=== PATIENT | female | born 2000 | race Two or more races ===

== ENCOUNTER 2020-07-09 15:09 | Inpatient (IN) ==
[2020-07-09 15:37] LABS: Appearance Urine Clear (Clear); Bilirubin Urine Negative (Negative); Blood Urine Negative (Negative); Color Urine Dark Yellow; Glucose Urine UA Negative (Negative); Ketones Urine Trace (Negative); Leukocyte Esterase Urine Negative (Negative); Nitrite Urine Negative (Negative); Protein Urine Negative (Negative); Specific Gravity Urine 1.024 (1.000-1.030); Urobilinogen Urine Negative (Negative); pH Urine 6.5 (4.5-7.5)
[2020-07-09 15:40] LABS: Pregnancy Test, Urine Negative (Negative)
[2020-07-09 16:01] LABS: Amphetamines+Metham, Urine Neg (Neg); Barbiturates, Urine Neg (Neg); Benzodiazepine, Urine Neg (Neg); Cocaine, Urine Neg (Neg); MDMA (Ecstacy), Urine Neg (Neg); Methadone, Urine Neg (Neg); Opiate, Urine Neg (Neg); Phencyclidine, Urine Neg (Neg)
[2020-07-09 16:12] LABS: Basophils # (auto) 0.04 K/uL (0-0.2); Basophils % (auto) 0.7 %; Eosinophils # (auto) 0.18 K/uL (0-0.5); Hematocrit (blood only) 41.4 % (37-47); Hemoglobin 14.1 g/dL (12.0-16.0); Immature Granulocytes # (auto) 0.01 K/uL (0.00-0.02); Immature Granulocytes % (auto) 0.2 %; Lymphocytes % (auto) 35.3 %; Mean Corpuscular Hemoglobin 28.9 pg (25-34); Mean Corpuscular Hgb Conc 34.1 g/dL (32-36); Mean Corpuscular Volume 84.8 fL (80-100); Mean Platelet Volume 9.3 fL (7.4-10.4); Monocytes # (auto) 0.23 K/uL (0.11-0.59); Monocytes % (auto) 3.9 %; Neutrophils # (auto) 3.39 K/uL (1.4-6.5); Neutrophils % (auto) 56.9 %; Platelet Count 386 K/uL (130-400); RDW Coefficient of Variation 13.8 % (11.5-14.5); RDW Standard Deviation 42.8 fL (36.4-46.3); Red Blood Count 4.88 M/uL (4.2-5.4); White Blood Count 5.95 K/uL (4.8-10.8)
[2020-07-09 16:29] LABS: Albumin Level 4.2 gm/dl (3.4-5.0); BUN Creatinine Ratio 8.5 (10-20); Calcium 9.4 mg/dl (8.5-10.1); Creatinine Clr Calc Pharmacy 77.7 ml/min; Est GFR (African American) 121.2; Est GFR (Non-African American) 104.6; Potassium 3.7 mmol/L (3.5-5.1)
[2020-07-09 16:39] LABS: Bilirubin,Total 0.4 mg/dl (0.2-1); Globulin 4.2 gm/dl (2.5-4.0); Thyroid Stimulating Hormone 0.331 uIu/ml (0.300-4.500); Total Protein 8.4 gm/dl (6.4-8.2)
[2020-07-09 16:49] LABS: Acetaminophen < 2 ug/ml (10-30); Salicylate < 1.7 mg/dl (2.8-20)
--- NOTE | 2020-07-09 17:29 | Emergency Department Note ---
Impression & Plan Mood disorder ED Provider Note INFORMANT: Patient ED PROVIDER(S): Serafin Rondon MD CHIEF COMPLAINT: SI PLAN: Disposition: Admitted to 3 . MEDICAL DECISION MAKING: Patient presented with SI. Labs negative. Physical without significant findind s otherwise. [address] [place] [address] consulted for admission. Patient was evaluated by mental health in emergency department. They felt admission was warranted. The patient was voluntarily admitted for further management. Triage Nursing notes reviewed and agree them. Vital Signs: reviewed and remarkable for no significant abnormalities Differential diagnosis: Mood disorder, infection, hypoglycemia, electrolyte abnormalities, cardiac sources, intracerebral event, toxicologic, trauma, neurologic, as well as other pathologies. Diagnostics interpreted by me: Imaging studies: Deferred Consultation(s): [address] [place] [address] Psychiatry. HPI: The patient is a 19 year old female who presents to the Emergency Room with complaints of suicidal ideation. This started over the last week and is worsening. The patient also notes the following associated symptoms, feeling anxiety and depression. She also notes increased sleep and low energy. The patient has been started on an SSRI 2 weeks ago. Since that time she has noted more anxiety and mood swings. She has found no relieving factors. Current pain is rated as 0/10. No Covid exposures or recent illnesses. The patient had thoughts of hurting herself with plan. She is followed by counseling services at the [facility]. She was referred to the ER for further treatment due to the suicidal ideation. Pt denies LOC, headache, fevers, chills, diaphoresis, visual changes, neck pain, chest pain, breathing difficulties, nausea, vomiting, abdominal pain, back pain, melena, hematochezia, urinary symptoms, numbness, weakness, lymphadenopathy, rash, or other complaints. ROS: See above HPI for pertinent positives & negatives. A total of 10 systems reviewed and were otherwise negative. PAST MEDICAL HISTORY:See Below, anxiety, suicide attempt PAST SURGICAL HISTORY:See Below, FAMILY HISTORY:See Below SOCIAL HISTORY:See Below, [facility] student HOME MEDICATIONS:See Below ALLERGIES:See Below VITALS:See Below PHYSICAL EXAMINATION: GENERAL: Awake, alert, well-appearing, in no distress HENT: Normocephalic, atraumatic. Oropharynx unremarkable. EYES: Normal conjunctiva. Sclera non-icteric. EOMI. PER. NECK: Inspection normal. Non-tender. Supple. No nuchal rigidity. FROM. No masses. RESPIRATORY: Clear to auscultation. No wheezes. No rales. Normal respiratory effort. CARDIAC: Normal rate. Normal rhythm. No murmurs. No rubs. Extremities warm and well perfused. Pulses equal. No JVD. GI: Soft, non-distended. No tenderness to palpation. No rebound or guarding. No masses. RECTAL: Deferred. MUSCULOSKELETAL: Atraumatic. Chest examination reveals no tenderness. The back is symmetrical on inspection without obvious abnormality. There is no CVA tenderness to palpation. No joint edema. LOWER EXTREMITIES: Calves are equal size bilaterally and non-tender. No edema. No discoloration. NEURO: Normal sensorium. No sensory or motor deficits noted. Cranial nerves II through XII intact. No drift. Normal rapid alternating movements. Normal [id number]. SKIN: No rash or jaundice noted. PSYCH: Positive suicidal ideation. No homicidal ideation. Mildly anxious mood. No hallucinations. Serafin Rondon MD Past Med/Surg History Social History Smoking Status: Never smoker Preferred Language: [facility] Communication Ability: Effective Neonatal Doctor Required: No Beliefs That Will Affect Care: Faith Faith Beliefs: Scientology Feels Safe at Home: Yes Assistive Devices: Glasses Allergies Allergies Allergy/AdvReac Type Severity Reaction Status Date / Time No Known Allergies Allergy Unverified 07/09/20 21:19 Home Meds Home Medications Medication Instructions Recorded Confirmed escitalopram oxalate [Lexapro] 10 mg PO DAILY 07/09/20 07/09/20 Results & Data (ED) Vital Signs Vital Signs - 24 hr 07/09/20 15:11 07/09/20 18:14 Temperature 36.5 C Temperature Source Oral Pulse Rate 105 H Pulse Rate [Left Finger] 110 H Pulse Rhythm [Left Finger] Regular Pulse Strength [Left Finger] Normal Respiratory Rate 18 16 Respiratory Effort / Characteristics Non-Labored Non-Labored Spontaneous Respiratory Depth Normal Normal Respiratory Pattern Regular Blood Pressure 128/95 Blood Pressure [Left Arm] 110/79 Blood Pressure Mean 106 Blood Pressure Mean [Left Arm] 89 Pulse Oximetry 98 100 Oxygen Delivery Method Room Air Room Air Sepsis Recent Fever Within 48 Hours No Sepsis New/Unexplained Change in Mental Status No Sepsis Action Taken by Nursing No Action Required Laboratory Data Result diagrams: 07/09/20 15:51 07/09/20 15:51 Lab Results 07/09/20 07/09/20 07/09/20 Range/Units 15:25 15:25 15:25 WBC (4.8-10.8) K/uL RBC (4.2-5.4) M/uL Hgb (12.0-16.0) g/dL Hct (37-47) % MCV (80-100) fL MCH (25-34) pg MCHC (32-36) g/dL RDW Std Deviation (36.4-46.3) fL RDW Coeff of Niall (11.5-14.5) % Plt Count (130-400) K/uL MPV (7.4-10.4) fL Immature Gran % (Auto) % Neut % (Auto) % Lymph % (Auto) % [place] % (Auto) % Eos % (Auto) % Baso % (Auto) % Neut # (Auto) (1.4-6.5) K/uL Lymph # (Auto) (1.2-3.4) K/uL [place] # (Auto) (0.11-0.59) K/uL Eos # (Auto) (0-0.5) K/uL Baso # (Auto) (0-0.2) K/uL Immature Gran # (Auto) (0.00-0.02) K/uL Sodium (136-145) mmol/L Potassium (3.5-5.1) mmol/L Chloride (98-107) mmol/L Carbon Dioxide (21-32) mmol/L Anion Gap (3-11) BUN (7-18) mg/dl Creatinine (0.6-1.2) mg/dl Est Cr Clr Drug Dosing ml/min Est GFR ( Amer) Est GFR (Non-Af Amer) BUN/Creatinine Ratio (10-20) Glucose (70-99) mg/dl Calcium (8.5-10.1) mg/dl Total Bilirubin (0.2-1) mg/dl AST (15-37) U/L ALT (12-78) U/L Alkaline Phosphatase (45-117) U/L Total Protein (6.4-8.2) gm/dl Albumin (3.4-5.0) gm/dl Globulin (2.5-4.0) gm/dl Albumin/Globulin Ratio (0.9-2) TSH (0.300-4.500) uIu/ml Urine Color Dark Yellow Urine Appearance Clear (Clear) Urine pH 6.5 (4.5-7.5) Ur Specific [place] 1.024 (1.000-1.030) Urine Protein Negative (Negative) Urine Glucose (UA) Negative (Negative) Urine Ketones Trace H (Negative) Urine Blood Negative (Negative) Urine Nitrite Negative (Negative) Urine Bilirubin Negative (Negative) Urine Urobilinogen Negative (Negative) Ur Leukocyte Esterase Negative (Negative) Urine Test Negative (Negative) Salicylates (2.8-20) mg/dl Urine Opiates Screen Neg (Neg) Ur Methadone, Qual Neg (Neg) Acetaminophen (10-30) ug/ml Urine Barbiturates Neg (Neg) Ur Phencyclidine (PCP) Neg (Neg) U Amphetamin/Meth Scrn Neg (Neg) MDMA (Ecstasy) Screen Neg (Neg) U Benzodiazepines Scrn Neg (Neg) Ur Cocaine Metabolite Neg (Neg) U Marijuana (THC) Screen Neg (Neg) Ethyl Alcohol mg/dL (0-3) mg/dl SARS-CoV-2 Ag (Rapid) (Negative) 07/09/20 07/09/20 07/09/20 Range/Units 15:51 15:51 15:51 WBC 5.95 (4.8-10.8) K/uL RBC 4.88 (4.2-5.4) M/uL Hgb 14.1 (12.0-16.0) g/dL Hct 41.4 (37-47) % MCV 84.8 (80-100) fL MCH 28.9 (25-34) pg MCHC 34.1 (32-36) g/dL RDW Std Deviation 42.8 (36.4-46.3) fL RDW Coeff of Niall 13.8 (11.5-14.5) % Plt Count 386 (130-400) K/uL MPV 9.3 (7.4-10.4) fL Immature Gran % (Auto) 0.2 % Neut % (Auto) 56.9 % Lymph % (Auto) 35.3 % [place] % (Auto) 3.9 % Eos % (Auto) 3.0 % Baso % (Auto) 0.7 % Neut # (Auto) 3.39 (1.4-6.5) K/uL Lymph # (Auto) 2.10 (1.2-3.4) K/uL [place] # (Auto) 0.23 (0.11-0.59) K/uL Eos # (Auto) 0.18 (0-0.5) K/uL Baso # (Auto) 0.04 (0-0.2) K/uL Immature Gran # (Auto) 0.01 (0.00-0.02) K/uL Sodium 139 (136-145) mmol/L Potassium 3.7 (3.5-5.1) mmol/L Chloride 107 (98-107) mmol/L Carbon Dioxide 24 (21-32) mmol/L Anion Gap 7.0 (3-11) BUN 7 (7-18) mg/dl Creatinine 0.81 (0.6-1.2) mg/dl Est Cr Clr Drug Dosing 77.7 ml/min Est GFR ( Amer) 121.2 Est GFR (Non-Af Amer) 104.6 BUN/Creatinine Ratio 8.5 L (10-20) Glucose 86 (70-99) mg/dl Calcium 9.4 (8.5-10.1) mg/dl Total Bilirubin 0.4 (0.2-1) mg/dl AST 19 (15-37) U/L ALT 19 (12-78) U/L Alkaline Phosphatase 78 (45-117) U/L Total Protein 8.4 H (6.4-8.2) gm/dl Albumin 4.2 (3.4-5.0) gm/dl Globulin 4.2 H (2.5-4.0) gm/dl Albumin/Globulin Ratio 1.0 (0.9-2) TSH 0.331 (0.300-4.500) uIu/ml Urine Color Urine Appearance (Clear) Urine pH (4.5-7.5) Ur Specific [place] (1.000-1.030) Urine Protein (Negative) Urine Glucose (UA) (Negative) Urine Ketones (Negative) Urine Blood (Negative) Urine Nitrite (Negative) Urine Bilirubin (Negative) Urine Urobilinogen (Negative) Ur Leukocyte Esterase (Negative) Urine Test (Negative) Salicylates < 1.7 L (2.8-20) mg/dl Urine Opiates Screen (Neg) Ur Methadone, Qual (Neg) Acetaminophen < 2 L (10-30) ug/ml Urine Barbiturates (Neg) Ur Phencyclidine (PCP) (Neg) U Amphetamin/Meth Scrn (Neg) MDMA (Ecstasy) Screen (Neg) U Benzodiazepines Scrn (Neg) Ur Cocaine Metabolite (Neg) U Marijuana (THC) Screen (Neg) Ethyl Alcohol mg/dL (0-3) mg/dl SARS-CoV-2 Ag (Rapid) (Negative) 07/09/20 07/09/20 Range/Units 15:51 17:00 WBC (4.8-10.8) K/uL RBC (4.2-5.4) M/uL Hgb (12.0-16.0) g/dL Hct (37-47) % MCV (80-100) fL MCH (25-34) pg MCHC (32-36) g/dL RDW Std Deviation (36.4-46.3) fL RDW Coeff of Niall (11.5-14.5) % Plt Count (130-400) K/uL MPV (7.4-10.4) fL Immature Gran % (Auto) % Neut % (Auto) % Lymph % (Auto) % [place] % (Auto) % Eos % (Auto) % Baso % (Auto) % Neut # (Auto) (1.4-6.5) K/uL Lymph # (Auto) (1.2-3.4) K/uL [place] # (Auto) (0.11-0.59) K/uL Eos # (Auto) (0-0.5) K/uL Baso # (Auto) (0-0.2) K/uL Immature Gran # (Auto) (0.00-0.02) K/uL Sodium (136-145) mmol/L Potassium (3.5-5.1) mmol/L Chloride (98-107) mmol/L Carbon Dioxide (21-32) mmol/L Anion Gap (3-11) BUN (7-18) mg/dl Creatinine (0.6-1.2) mg/dl Est Cr Clr Drug Dosing ml/min Est GFR ( Amer) Est GFR (Non-Af Amer) BUN/Creatinine Ratio (10-20) Glucose (70-99) mg/dl Calcium (8.5-10.1) mg/dl Total Bilirubin (0.2-1) mg/dl AST (15-37) U/L ALT (12-78) U/L Alkaline Phosphatase (45-117) U/L Total Protein (6.4-8.2) gm/dl Albumin (3.4-5.0) gm/dl Globulin (2.5-4.0) gm/dl Albumin/Globulin Ratio (0.9-2) TSH (0.300-4.500) uIu/ml Urine Color Urine Appearance (Clear) Urine pH (4.5-7.5) Ur Specific [place] (1.000-1.030) Urine Protein (Negative) Urine Glucose (UA) (Negative) Urine Ketones (Negative) Urine Blood (Negative) Urine Nitrite (Negative) Urine Bilirubin (Negative) Urine Urobilinogen (Negative) Ur Leukocyte Esterase (Negative) Urine Test (Negative) Salicylates (2.8-20) mg/dl Urine Opiates Screen (Neg) Ur Methadone, Qual (Neg) Acetaminophen (10-30) ug/ml Urine Barbiturates (Neg) Ur Phencyclidine (PCP) (Neg) U Amphetamin/Meth Scrn (Neg) MDMA (Ecstasy) Screen (Neg) U Benzodiazepines Scrn (Neg) Ur Cocaine Metabolite (Neg) U Marijuana (THC) Screen (Neg) Ethyl Alcohol mg/dL < 3.0 (0-3) mg/dl SARS-CoV-2 Ag (Rapid) Negative (Negative) Discharge Plan Visit Data Chief Complaint: Mental Health Evaluation Stated Complaint: MENTAL HEALTH EVAL ED Provider: Serafin Rondon Discharge Problem: Mood disorder Patient Disposition: Admitted As Inpatient Discharge Instructions Interventions: ED Discharge Assessment Last Done: 07/09/20 19:24
[2020-07-09] MEDS ORDERED: ACETAMINOPHEN 325 MG TAB PO PRN (19:18)
[2020-07-09] MEDS ORDERED: SODIUM CHLORIDE 0.65% NA SOLN 45 ML (OCEAN) PRN (19:18)
[2020-07-09] MEDS ORDERED: MAGNESIUM HYDROXIDE SUSP 30 ML UDC PO PRN (19:18)
[2020-07-09] MEDS ORDERED: BISMUTH SUBSALICYLATE LIQD 236 ML PO PRN (19:18)
[2020-07-09] MEDS ORDERED: hydrOXYzine HCl 25 MG TAB PO PRN ×2 (19:18)
[2020-07-09] MEDS ORDERED: ALUMINUM/MAGNESIUM SUSP 30 ML UDC PO PRN (19:18)
[2020-07-09] MEDS ORDERED: PATIENT'S ALLERGY INFO NEEDS ENTERED SCH (19:30)
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
[2020-07-10] MEDS ORDERED: SERTRALINE HCL 50 MG TABLET PO ONE (10:15)
[2020-07-11] MEDS: SERTRALINE HCL 50 MG TABLET PO SCH (08:55)
--- NOTE | 2020-07-11 11:06 | Psychiatric Progress Note ---
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 for suicidal ideation with multiple plans. She reports that since starting therapy a month ago she has had several remembered "traumas" involving interactions with her parents when she was a child, but does not meet full criteria for PTSD. She has a history of cutting her wrist last year while at boarding school, but is poorly able to recall her state of mind at the time. She is describing symptoms of depression as well as some borderline traits, including cutting/self injury, persistent SI, feeling of emptiness. She has strained relationship with her parents but reports good support from friends, although all are in [facility] while she is in the for college. She feels symptoms have worsened over the past 2 weeks since starting escitalopram, and agreed to a trial of sertraline in its place. She is endo rsing suicidal thoughts with multiple plans, acts of furtherance, and hopelessness for the future, and inpatient treatment is medically necessary at this time. (1) Depression: 07/10 - Patient describes multiple episodes of depressive symptoms, just started treatment with first SSRI 2 weeks ago, and feels symptoms have worsened since then. Will discontinue escitalopram and start trial of sertraline, 25mg today and 50mg tomorrow. Reviewed risks, benefits, and side effects with patient, as well as alternatives and goals of treatment with an antidepressant. - Coordinate care with therapist at [facility], and refer for outpatient psychiatry. - Family meeting if appropriate. - Collateral information may be helpful if able to identify family member she'd like to involve in treatment. 07/11 - Continue treatment plan as above. Will continue sertraline at 50mg for tomorrow morning, then discuss further titration as tolerated. Discussed goal range of 100-150mg. - Continue to build therapeutic rapport, as patient has been gradually disclosing additional information that will allow us to refine diagnosis and better assist with development of a safe discharge plan - Pt continues to endorse SI, but does state "I want to find hope." - Reviewed recommendation for a family meeting - patient reporting preference at this time to include two close friends. - Coordinate outpatient referrals - as it is recommended that patient transition to a psychiatric provider to manage her antidepressant prescribing Risk Factors Assessment Male: No : No Do You Have Access To A Gun?: No Health Problems: No Mental Health Diagnoses: Yes Substance Use Disorders: No Previous Attempt: Yes Family History of Suicide: No Previous Psychiatric Hospitalization: No Hopelessness: Yes Smoker: No Protective Factors Assessment : No Responsible for Young Children: No Employed: No Stable Relationships: Yes Supportive Family: Yes Good Rapport with Provider: Yes Interval History Identifying Information JANE KENYON is a 19-year-old [employer] student, has a history of depression, and was admitted on 07/09/20 19:19 on a 201 voluntary commitment for depression with suicidal ideation with multiple plans. Chief Complaint "Um, I don't know. I'm not great." Review of Systems Notes Constitutional: denied Cardiovascular: denied Respiratory: denied Gastrointestinal: denied Genitourinary: reported brief episode of spotting, ~4 days s/p end of menses. Denies associated symptoms. Neurological: denied Psychiatric: denies symptoms other than stated above Total of at least 10 systems reviewed, pertinent positives as above and in HPI. Sleep Information Total Hours of Sleep: 6.5 Meal Information Percent Meal Consumed - Breakfast: 90 Percent Meal Consumed - Dinner: 70 Subjective Subjective Patient was seen & assessed and interval progress reviewed with treatment team. Staff report the patient has been participating in group programming, but has also been somewhat isolative. The patient has continued to endorse SI, but has been able to contract for safety on the unit. Pt has been gradually more forthcoming with information as she has adjusted to the unit. Pt was seen today to assess progress since admission. She admits "I'm not great." Pt admits to feeling uncomfortable with group programming as "everyone else is doing so well, and I don't want to bring them all down." We discussed that yesterday was her first full day and that everyone is at a different stage in their treatment journey. The patient did report feeling more comfortable during a 1:1 session with our evening shift counselor. She states "he was able to help me figure out what my problem is." The patient explained that at her core, she does not feel "happy" or "satisfied." The patient states that "my family is supportive and a lot of things are going well, but as long as I'm not happy I won't be able to appreciate those other things." Pt admits that she is continuing to have suicidal ideation. She denies specific temptations on the unit, but states "usually all day I would be thinking about how I could use things to hurt myself, but there is nothing here." Pt describes her suicidality as "I feel like I'm living in darkness, just trying to survive it, but I want to get out of it. For a long time, I thought the only way I could get out is to kill myself, but I want to find hope." Pt states she has been better able to appreciate that these cognitive distortions may be related to her depression, and she is open to medication adjustments and ongoing work with therapy. The patient is open to a support meeting, and feels that involving two close friends would be her preference at this time. The patient denied any acute concerns presently. We did follow-up on reports patient presented to this provider earlier in the day, that she was experiencing vaginal bleeding ~4 days after the end of her menses. Pt states this has resolved 1-2 hours later and denies concern. She denies associated symptoms of cramping, nausea, bloating, headache, or fatigue. Pt denies any pain in that region and denies any concern for traumatic injury. We discussed continuing to monitor symptoms, patient admitted she would report any new concerns. Physical Exam Psychiatric Orientation: alert, oriented x 3 and cooperative Apperance: appropriately dressed, appropriately groomed and appeared stated age Eye Contact: good eye contact Motor Behavior: no abnormal motor movements (observed while sitting upright in bed) Speech: normal rate/rhythm/volume of speech Affect: + blunted affect (appearing subdued) Mood: + depressed mood Thought Process: goal directed thought process Thought Content: + cognitive distortions, + hopelessness and + worthlessness Suicidal Thoughts: + reports suicidal thoughts and + reports suicidal intent Pt endorses ongoing SI - stating that she regularly looks for things she could use to harm herself, but denies specific temptations here on the unit. Pt is not able to contract for safety outside of the hospital setting, but does admit that she would like to "find hope" Homicidal Thoughts: denies homicidal thoughts Hallucinations: no auditory hallucinations and no visual hallucinations Cognition: attention grossly intact and language grossly intact Estimated Intelligence: consistent with education level Insight: + impaired insight Judgement: + impaired judgement Vital Signs (Past 24 Hours) Last Vital Signs Temp 36.4 C L 07/11/20 06:48 Pulse 94 H 07/11/20 06:49 Resp 16 07/11/20 06:48 BP 116/78 07/11/20 06:49 Pulse Ox 99 07/09/20 20:01 Results & Data ([facility]) Current Inpatient Medications Current Inpatient Medications: Current Inpatient Medications Acetaminophen (Acetaminophen 325 Mg Tab) 650 mg PO Q4H PRN PRN Reason: Headache or Minor Fever Stop: 08/08/20 19:17 Al Hydrox/Mg Hydrox/Simethicone (Aluminum/Magnesium Susp 30 Ml Udc) 30 ml PO Q4H PRN PRN Reason: GI Upset Stop: 08/08/20 19:17 Bismuth Subsalicylate (Bismuth Subsalicylate Liqd 236 Ml) 15 ml PO PRN PRN PRN Reason: Loose Stool Stop: 08/08/20 19:17 Hydroxyzine HCl (Hydroxyzine Hcl 25 Mg Tab) 50 mg PO HSZ PRN PRN Reason: Insomnia Stop: 08/08/20 19:17 Hydroxyzine HCl (Hydroxyzine Hcl 25 Mg Tab) 25 mg PO Q4H PRN PRN Reason: Anxiety Stop: 08/08/20 19:17 Magnesium Hydroxide (Magnesium Hydroxide Susp 30 Ml Udc) 30 ml PO DAILY PRN PRN Reason: Constipation Stop: 08/08/20 19:17 Sertraline HCl (Sertraline Hcl 50 Mg Tablet) 50 mg PO QAM JHON Stop: 08/10/20 08:59 Last Admin: 07/11/20 08:55 Dose: 50 mg Documented by: Sodium Chloride (Sodium Chloride 0.65% Na Soln 45 Ml ([place])) 1 - 2 sprays NA PRN PRN PRN Reason: Nasal Dryness/Congestion Stop: 08/08/20 19:17 Mental Health & Subst Abuse Tx Therapist Name of Therapist: Tahir Carey [facility] Post Discharge Appointments Primary Care Physician Name Of Family Doctor: Dr[facility]Gelvin [facility] (1) Depression Depression Type: major depressive disorder Major depression recurrence: recurrent Active/Remission status: currently active Major depression episode severity: severe Psychotic features: with psychotic features Qualified Code(s): F33.3 - Major depressive disorder, recurrent, severe with psychotic symptoms
--- NOTE | 2020-07-12 08:59 | Psychiatric Progress Note ---
Date of Service July 12, 2020 Impression / Recommendations Impression 19-year-old Tajik female [employer] student who has a history of depression, for which she just started treatment within the past month, who presents on referral from her therapist at [facility] for suicidal ideation with multiple plans. She reports that since starting therapy a month ago she has had several remembered "traumas" involving interactions with her parents when she was a child, but does not meet full criteria for PTSD. She has a history of cutting her wrist last year while at boarding school, but is poorly able to recall her state of mind at the time. She is describing symptoms of depression as well as some borderline traits, including cutting/self injury, persistent SI, feeling of emptiness. She has strained relationship with her parents but reports good support from friends, although all are in [employer] while she is in the for college. She feels symptoms have worsened over the past 2 weeks since starting escitalopram, and agreed to a trial of sertraline in its place. She is endo rsing suicidal thoughts with multiple plans, acts of furtherance, and hopelessness for the future, and inpatient treatment is medically necessary at this time. (1) Depression: 07/10 - Patient describes multiple episodes of depressive symptoms, just started treatment with first SSRI 2 weeks ago, and feels symptoms have worsened since then. Will discontinue escitalopram and start trial of sertraline, 25mg today and 50mg tomorrow. Reviewed risks, benefits, and side effects with patient, as well as alternatives and goals of treatment with an antidepressant. - Coordinate care with therapist at [facility], and refer for outpatient psychiatry. - Family meeting if appropriate. - Collateral information may be helpful if able to identify family member she'd like to involve in treatment. 07/11 - Continue treatment plan as above. Will continue sertraline at 50mg for tomorrow morning, then discuss further titration as tolerated. Discussed goal range of 100-150mg. - Continue to build therapeutic rapport, as patient has been gradually disclosing additional information that will allow us to refine diagnosis and better assist with development of a safe discharge plan - Pt continues to endorse SI, but does state "I want to find hope." - Reviewed recommendation for a family meeting - patient reporting preference at this time to include two close friends. - Coordinate outpatient referrals - as it is recommended that patient transition to a psychiatric provider to manage her antidepressant prescribing 07/12 - Titrating to 100mg of sertraline for tomorrow morning. Pt continues to struggle with SI and difficulty identifying reasons to live. She has been open to suggestions from staff, and has been working to develop healthy and effective coping skills. - She continues to have urges to self-harm, but has been unable to identify specific temptations on the unit - reports she remains able to contract for safety and would inform staff before attempting to harm herself. - She continues to describe "two voices" - but does describe them more as intrusive thoughts rather than true auditory hallucinations. Will continue to discuss as needed, titrating sertraline as above. - Pt is willing for a meeting with her parents - Coordinating outpatient psychiatric services through [facility] Risk Factors Assessment Male: No : No Do You Have Access To A Gun?: No Health Problems: No Mental Health Diagnoses: Yes Substance Use Disorders: No Previous Attempt: Yes Family History of Suicide: No Previous Psychiatric Hospitalization: No Hopelessness: Yes Smoker: No Protective Factors Assessment : No Responsible for Young Children: No Employed: No Stable Relationships: Yes Supportive Family: Yes Good Rapport with Provider: Yes Interval History Identifying Information JANE KENYON is a 19-year-old [employer] student, has a history of depression, and was admitted on 07/09/20 19:19 on a 201 voluntary commitment for depression with suicidal ideation with multiple plans. Chief Complaint "Um, today is a little difficult." Review of Systems Notes Constitutional: denied Cardiovascular: denied Respiratory: denied Gastrointestinal: denied Genitourinary: reports ongoing vaginal bleeding - now admitting she has not had her OCP Neurological: denied Psychiatric: denies symptoms other than stated above Total of at least 10 systems reviewed, pertinent positives as above and in HPI. Sleep Information Total Hours of Sleep: 5.5 Meal Information Percent Meal Consumed - Breakfast: 90 Percent Meal Consumed - Lunch: 80 Percent Meal Consumed - Dinner: 100 Subjective Subjective Patient was seen & assessed and interval progress reviewed with nursing and social work. Staff report the patient has been participating in group programming. She did reportedly present to staff last evening with self- harm/suicidal thoughts/urges, received prn hydroxyzine and followed through with advise of staff regarding engaging in coping skills. Pt was seen today to assess progress since admission. The patient tells this provider that "today is a little difficult." She admits that she was having thoughts to harm herself last evening and was encouraged to write a list of positive thoughts or reasons to keep living. Pt admits she took this advice, but is not yet finding it beneficial. Pt did share that she was "hearing voices" last evening, which led to her feeling overwhelmed. The patient stated "I have two voices. One just makes sounds, like gun shots or shoveling. The other one is the talking one." Pt wrote down what the "voice" was saying to share with this provider. Notes include statements such as "you are unworthy" and "live for yourself, do what you want, kill yourself." The patient states that she attempted to ignore the voice, but found it difficult - described as "a garcia between my head and my heart." Pt was asked to describe the "voices" and does admit "it feels like me, it's like my voice but not my thoughts." We reviewed other distraction techniques and coping strategies that the patient might be able to utilize. She continues to endorse SI, and states "I just don't know the reason to continue living." Pt admits to continued self-harm urges, but no specific temptations on the unit. Pt is open about sharing the difficulty she is having managing these thoughts/emotions, but then simultaneously states "I guess I just don't know why I'm still here. Like what am I supposed to be doing?" We reviewed the positive steps patient has been taking in her treatment, reviewed ongoing goals, and also discussed safety and discharge planning steps. Pt is open to a family meeting with her parents. She is agreeable with titrating sertraline to 100mg tomorrow morning. Pt does share that she is still having some vaginal bleeding, but now discloses a diagnosis of PCOS and fibroids, and states she has not taken her OCP since admission. We discussed the ability to have a friend bring in her OCP if desired. Pt denies any significant abdominal pain or cramping or other associated symptoms. She denies other needs or concerns at this time. Physical Exam Psychiatric Orientation: alert, oriented x 3 and cooperative Apperance: appropriately dressed, appropriately groomed and appeared stated age Eye Contact: good eye contact Motor Behavior: steady gait and station and no abnormal motor movements Speech: normal rate/rhythm/volume of speech Affect: + blunted affect (mildly subdued, but interactive, smiling, and at times rather perky ); + mood not congruent with affect Mood: + depressed mood Thought Process: goal directed thought process and clear/coherent thought process Thought Content: + cognitive distortions, + hopelessness, + worthlessness and + self deprecation Suicidal Thoughts: denies suicidal plan (unable to identify specific plan/means here on the unit); + reports suicidal thoughts and + reports suicidal intent Continues to struggle with SI and identifying reasons to live. Able to contract for safety on the unit, but not outside of the hospital setting Homicidal Thoughts: denies homicidal thoughts Hallucinations: no auditory hallucinations and no visual hallucinations Describes intrusive thoughts as opposed to true auditory hallucinations Cognition: recent memory grossly intact, attention grossly intact and language grossly intact Estimated Intelligence: consistent with education level Insight: + impaired insight Judgement: + impaired judgement Vital Signs (Past 24 Hours) Last Vital Signs Temp 36.6 C 07/12/20 06:38 Pulse 74 07/12/20 06:38 Resp 19 07/12/20 06:38 BP 113/73 07/12/20 06:38 Pulse Ox 99 07/09/20 20:01 Results & Data ([facility]) Current Inpatient Medications Current Inpatient Medications: Current Inpatient Medications Acetaminophen (Acetaminophen 325 Mg Tab) 650 mg PO Q4H PRN PRN Reason: Headache or Minor Fever Stop: 08/08/20 19:17 Al Hydrox/Mg Hydrox/Simethicone (Aluminum/Magnesium Susp 30 Ml Udc) 30 ml PO Q4H PRN PRN Reason: GI Upset Stop: 08/08/20 19:17 Bismuth Subsalicylate (Bismuth Subsalicylate Liqd 236 Ml) 15 ml PO PRN PRN PRN Reason: Loose Stool Stop: 08/08/20 19:17 Hydroxyzine HCl (Hydroxyzine Hcl 25 Mg Tab) 50 mg PO HSZ PRN PRN Reason: Insomnia Stop: 08/08/20 19:17 Last Admin: 07/12/20 02:03 Dose: 50 mg Documented by: Hydroxyzine HCl (Hydroxyzine Hcl 25 Mg Tab) 25 mg PO Q4H PRN PRN Reason: Anxiety Stop: 08/08/20 19:17 Magnesium Hydroxide (Magnesium Hydroxide Susp 30 Ml Udc) 30 ml PO DAILY PRN PRN Reason: Constipation Stop: 08/08/20 19:17 Sertraline HCl (Sertraline Hcl 50 Mg Tablet) 50 mg PO QAM JHON Stop: 08/10/20 08:59 Last Admin: 07/11/20 08:55 Dose: 50 mg Documented by: Sodium Chloride (Sodium Chloride 0.65% Na Soln 45 Ml ([place])) 1 - 2 sprays NA PRN PRN PRN Reason: Nasal Dryness/Congestion Stop: 08/08/20 19:17 Mental Health & Subst Abuse Tx Psychiatrist Name of Psychiatrist: EZIO Stratton Psychiatrist's Psychiatric Appointment Comment: Telehealth Therapist Name of Therapist: EZIO Carey Therapist's Therapy Appointment Comment: Telehealth Post Discharge Appointments Primary Care Physician Name Of Family Doctor: ROMAN Amador Primary Care Provider Appointment Comment: [facility] Contact Information Discharge Discharge Address: [address] [place] [address], [address], [place] [address] (1) Depression Active/Remission status: currently active Depression Type: major depressive disorder Major depression episode severity: severe Major depression recurrence: recurrent Psychotic features: with psychotic features Qualified Code(s): F33.3 - Major depressive disorder, recurrent, severe with psychotic symptoms
[2020-07-12] MEDS: SERTRALINE HCL 50 MG TABLET PO SCH (10:20)
--- NOTE | 2020-07-12 14:43 | Communication Note ---
Date of Service: July 12, 2020 Therapy Records Received and Reviewed - [facility] Diagnoses: Borderline personality disorder; PTSD. Previously unspecified depressive disorder. - Pt started therapy services after receiving a Zero on a midterm for "helping her friend out with the exam." Pt reported "crying most of the time" after this event, reporting significant worry about her grades. This is due to pressure from parents and having to maintain a GPA of 3.0 to keep the government sponsorship. Pt did acknowledge previous therapy from [id number] after a break- up with boyfriend of 4 years and "attempted suicide." Documentation states she locked herself in her room and cut her wrists while in boarding school. It is suggested that patient is concerned about the possibility of developing a persistent mental illness. Pt reported not having many friends at [employer] and is not close with her house mates, though documentation suggests she had supports assist her with hospitalization process. See scanned therapy documents for more specific details.
[2020-07-13] MEDS: SERTRALINE HCL 100 MG TABLET PO SCH (08:56)
--- NOTE | 2020-07-13 09:39 | Psychiatric Progress Note ---
Date of Service July 13, 2020 Impression / Recommendations Impression 19-year-old [place] female [employer] student who has a history of depression, for which she just started treatment within the past month, who presents on referral from her therapist at [facility] for suicidal ideation with multiple plans. She reports that since starting therapy a month ago she has had several remembered "traumas" involving interactions with her parents when she was a child, but does not meet full criteria for PTSD. She has a history of cutting her wrist last year while at boarding school, but is poorly able to recall her state of mind at the time. She is describing symptoms of depression as well as some borderline traits, including cutting/self injury, persistent SI, feeling of emptiness. She has strained relationship with her parents but reports good support from friends, although all are in [facility] while she is in the for college. She feels symptoms have worsened over the past 2 weeks since starting escitalopram, and agreed to a trial of sertraline in its place. She is endo rsing suicidal thoughts with multiple plans, acts of furtherance, and hopelessness for the future, and inpatient treatment is medically necessary at this time. (1) Depression: 07/10 - Patient describes multiple episodes of depressive symptoms, just started treatment with first SSRI 2 weeks ago, and feels symptoms have worsened since then. Will discontinue escitalopram and start trial of sertraline, 25mg today and 50mg tomorrow. Reviewed risks, benefits, and side effects with patient, as well as alternatives and goals of treatment with an antidepressant. - Coordinate care with therapist at [facility], and refer for outpatient psychiatry. - Family meeting if appropriate. - Collateral information may be helpful if able to identify family member she'd like to involve in treatment. 07/11 - Continue treatment plan as above. Will continue sertraline at 50mg for tomorrow morning, then discuss further titration as tolerated. Discussed goal range of 100-150mg. - Continue to build therapeutic rapport, as patient has been gradually disclosing additional information that will allow us to refine diagnosis and better assist with development of a safe discharge plan - Pt continues to endorse SI, but does state "I want to find hope." - Reviewed recommendation for a family meeting - patient reporting preference at this time to include two close friends. - Coordinate outpatient referrals - as it is recommended that patient transition to a psychiatric provider to manage her antidepressant prescribing 07/12 - Titrating to 100mg of sertraline for tomorrow morning. Pt continues to struggle with SI and difficulty identifying reasons to live. She has been open to suggestions from staff, and has been working to develop healthy and effective coping skills. - She continues to have urges to self-harm, but has been unable to identify specific temptations on the unit - reports she remains able to contract for safety and would inform staff before attempting to harm herself. - She continues to describe "two voices" - but does describe them more as intrusive thoughts rather than true auditory hallucinations. Will continue to discuss as needed, titrating sertraline as above. - Pt is willing for a meeting with her parents - Coordinating outpatient psychiatric services through [facility] 07/13 - Continue sertraline 100mg daily - Pt denies SI since our encounter yesterday, but is still attempting to build confidence with consistently combatting suicidal thinking - Schedule family meeting with patient's parents - Pt requesting to continue services with [facility] through the end of the semester Risk Factors Assessment Male: No : No Do You Have Access To A Gun?: No Health Problems: No Mental Health Diagnoses: Yes Substance Use Disorders: No Previous Attempt: Yes Family History of Suicide: No Previous Psychiatric Hospitalization: No Hopelessness: Yes Smoker: No Protective Factors Assessment : No Responsible for Young Children: No Employed: No Stable Relationships: Yes Supportive Family: Yes Good Rapport with Provider: Yes Interval History Identifying Information JANE KENYON is a 19-year-old [employer] student, has a history of depression, and was admitted on 07/09/20 19:19 on a 201 voluntary commitment for depression with suicidal ideation with multiple plans. Chief Complaint "Good. I feel great." Review of Systems Notes Constitutional: denied Cardiovascular: denied Respiratory: denied Gastrointestinal: denied Neurological: denied Psychiatric: denies symptoms other than stated above Total of at least 10 systems reviewed, pertinent positives as above and in HPI. Sleep Information Total Hours of Sleep: 7.5 Meal Information Percent Meal Consumed - Breakfast: 100 Percent Meal Consumed - Lunch: 100 Percent Meal Consumed - Dinner: 75 Subjective Subjective Patient was seen & assessed and interval progress reviewed with treatment team. Staff report the patient has been engaged in group programming. She continues to endorse SI, without ability to identify a reason to keep living. She has agreed to a meeting with her parents, but this is not yet scheduled. Pt was seen today to assess progress since admission. The patient states she is "good. I feel great." The patient does appear genuinely more cheerful today and was asked what she feels led to this dramatic mood change from yesterday (yesterday morning the patient was reporting poor sleep, SI, hopelessness, no reason to live). Pt states that she had been engaged in some confucianism readings and read a phrase "a light will shine into the darkness." Pt shares that this has changed her perspective in some ways as "I was always praying that God would take the darkness away, but I'm realizing now that I need to find ways to bring light into the darkness." Pt states that she was drawing and journaling about this, listing "light" as "therapy, medications, exercise, talking to friends - things that I can do to let some of the light in." It does seem that patient feels she has more ability to actively affect change in her circumstances, which seems to have given her some increased hopefulness. Pt denies significant/persistent SI since our conversation yesterday, but states her goal for today is to work on how to combat negative or suicidal thinking should it recur. We discussed some positive reflections and affirmations the patient can utilize as well as reviewing distraction and mindfulness techniques. Pt is still willing for a meeting with her parents and states she has reached out to them to schedule an appropriate time. The patient denies any present side effects related to increased dose of sertraline this morning. She denies any present needs or concerns. Physical Exam Psychiatric Orientation: alert, oriented x 3 and cooperative Apperance: appropriately dressed, appropriately groomed and appeared stated age Eye Contact: good eye contact Motor Behavior: no abnormal motor movements (observed while sitting on window sill in activity room) Speech: normal rate/rhythm/volume of speech Affect: euthymic affect (bright, smiling, appearing genuinely cheerful ) Mood: no depressed mood and no anxious mood Thought Process: goal directed thought process and clear/coherent thought process Thought Content: reality based without delusions; no hopelessness Suicidal Thoughts: denies suicidal thoughts Homicidal Thoughts: denies homicidal thoughts Hallucinations: no auditory hallucinations and no visual hallucinations Cognition: recent memory grossly intact, attention grossly intact and language grossly intact Estimated Intelligence: consistent with education level Insight: + fair insight Judgement: + fair judgement Vital Signs (Past 24 Hours) Last Vital Signs Temp 36.8 C 07/13/20 06:42 Pulse 82 07/13/20 06:43 Resp 20 07/13/20 06:42 BP 112/78 07/13/20 06:43 Pulse Ox 99 07/09/20 20:01 Results & Data ([facility]) Current Inpatient Medications Current Inpatient Medications: Current Inpatient Medications Acetaminophen (Acetaminophen 325 Mg Tab) 650 mg PO Q4H PRN PRN Reason: Headache or Minor Fever Stop: 08/08/20 19:17 Al Hydrox/Mg Hydrox/Simethicone (Aluminum/Magnesium Susp 30 Ml Udc) 30 ml PO Q4H PRN PRN Reason: GI Upset Stop: 08/08/20 19:17 Bismuth Subsalicylate (Bismuth Subsalicylate Liqd 236 Ml) 15 ml PO PRN PRN PRN Reason: Loose Stool Stop: 08/08/20 19:17 Hydroxyzine HCl (Hydroxyzine Hcl 25 Mg Tab) 50 mg PO HSZ PRN PRN Reason: Insomnia Stop: 08/08/20 19:17 Last Admin: 07/12/20 02:03 Dose: 50 mg Documented by: Hydroxyzine HCl (Hydroxyzine Hcl 25 Mg Tab) 25 mg PO Q4H PRN PRN Reason: Anxiety Stop: 08/08/20 19:17 Magnesium Hydroxide (Magnesium Hydroxide Susp 30 Ml Udc) 30 ml PO DAILY PRN PRN Reason: Constipation Stop: 08/08/20 19:17 Sertraline HCl (Sertraline Hcl 100 Mg Tablet) 100 mg PO QAM JHON Stop: 08/12/20 08:59 Last Admin: 07/13/20 08:56 Dose: 100 mg Documented by: Sodium Chloride (Sodium Chloride 0.65% Na Soln 45 Ml ([place])) 1 - 2 sprays NA PRN PRN PRN Reason: Nasal Dryness/Congestion Stop: 08/08/20 19:17 Mental Health & Subst Abuse Tx Psychiatrist Name of Psychiatrist: EZIO Dozier Psychiatrist's Psychiatric Appointment Comment: Telehealth Therapist Name of Therapist: EZIO Carey Therapist's Date of Therapist Appointment: 07/16/20 Time of Therapist Appointment: 1:00 p.m. Therapy Appointment Comment: Telehealth Safety And Skill Based Pay Manager Name of Safety And Skill Based Pay Manager: EZIO Danny Terry Phone Number for Safety And Skill Based Pay Manager: [phone] Date of Appointment with Safety And Skill Based Pay Manager: 07/17/20 Time of Appointment with Safety And Skill Based Pay Manager: 9:30 a.m. Case Management Appointment Comment: Phone appointment Post Discharge Appointments Primary Care Physician Name Of Family Doctor: [facility] Primary Care Provider Appointment Comment: [facility] Other #1: Name of Aftercare Appointment: [facility] Phone Number of Aftercare Appointment: [phone] Date of Aftercare Appointment: 07/18/20 Time of Aftercare Appointment: 10:00 a.m. Aftercare Appointment Comment: Will call you #2: Name of Aftercare Appointment: Roderick [facility] Phone Number of Aftercare Appointment: [phone] Date of Aftercare Appointment: 09/20/20 Time of Aftercare Appointment: 9:15am Aftercare Appointment Comment: [address] [facility], [place] [address] Contact Information Discharge Discharge [address]: [address] [place], [place] [address] [address] [place] [address] (1) Depression Active/Remission status: currently active Depression Type: major depressive disorder Major depression episode severity: severe Major depression recurrence: recurrent Psychotic features: with psychotic features Qualified Code(s): F33.3 - Major depressive disorder, recurrent, severe with psychotic symptoms
[2020-07-14] MEDS: SERTRALINE HCL 100 MG TABLET PO SCH (09:00)
--- NOTE | 2020-07-15 08:13 | Psychiatric Progress Note ---
Date of Service July 15, 2020 Impression / Recommendations Impression 19-year-old [place] female [employer] student who has a history of depression, for which she just started treatment within the past month, who presents on referral from her therapist at [facility] for suicidal ideation with multiple plans. She has been switched from escitalopram to sertraline, and is responding well to therapy and support in the milieu. (1) Depression: 07/10 - Patient describes multiple episodes of depressive symptoms, just started treatment with first SSRI 2 weeks ago, and feels symptoms have worsened since then. Will discontinue escitalopram and start trial of sertraline, 25mg today and 50mg tomorrow. Reviewed risks, benefits, and side effects with patient, as well as alternatives and goals of treatment with an antidepressant. - Coordinate care with therapist at [facility], and refer for outpatient psychiatry. - Family meeting if appropriate. - Collateral information may be helpful if able to identify family member she'd like to involve in treatment. 07/11 - Continue treatment plan as above. Will continue sertraline at 50mg for tomorrow morning, then discuss further titration as tolerated. Discussed goal range of 100-150mg. - Continue to build therapeutic rapport, as patient has been gradually disclosing additional information that will allow us to refine diagnosis and better assist with development of a safe discharge plan - Pt continues to endorse SI, but does state "I want to find hope." - Reviewed recommendation for a family meeting - patient reporting preference at this time to include two close friends. - Coordinate outpatient referrals - as it is recommended that patient transition to a psychiatric provider to manage her antidepressant prescribing 07/12 - Titrating to 100mg of sertraline for tomorrow morning. Pt continues to struggle with SI and difficulty identifying reasons to live. She has been open to suggestions from staff, and has been working to develop healthy and effective coping skills. - She continues to have urges to self-harm, but has been unable to identify specific temptations on the unit - reports she remains able to contract for safety and would inform staff before attempting to harm herself. - She continues to describe "two voices" - but does describe them more as intrusive thoughts rather than true auditory hallucinations. Will continue to discuss as needed, titrating sertraline as above. - Pt is willing for a meeting with her parents - Coordinating outpatient psychiatric services through [facility] 07/13 - Continue sertraline 100mg daily - Pt denies SI since our encounter yesterday, but is still attempting to build confidence with consistently combatting suicidal thinking - Schedule family meeting with patient's parents - Pt requesting to continue services with [facility] through the end of the semester 07/14 - 07/15 -Patient continues to improve, planning for discharge Thursday. Risk Factors Assessment Male: No : No Do You Have Access To A Gun?: No Health Problems: No Mental Health Diagnoses: Yes Substance Use Disorders: No Previous Attempt: Yes Family History of Suicide: No Previous Psychiatric Hospitalization: No Hopelessness: Yes Smoker: No Protective Factors Assessment : No Responsible for Young Children: No Employed: No Stable Relationships: Yes Supportive Family: Yes Good Rapport with Provider: Yes Interval History Identifying Information JANE KENYON is a 19-year-old [employer] student, has a history of depress ion, and was admitted on 07/09/20 19:19 on a 201 voluntary commitment for depression with suicidal ideation with multiple plans. Chief Complaint "Great". Review of Systems Sleep Information Total Hours of Sleep: 7.25 Meal Information Percent Meal Consumed - Breakfast: 75 Percent Meal Consumed - Lunch: 100 Percent Meal Consumed - Dinner: 100 Subjective Subjective Patient was seen & assessed and interval progress reviewed with nursing and social work. Staff report she is attending groups and therapy, and reporting improved mood. On my assessment, she reports mood is improving, and she felt it was very helpful to have a family meeting. She also reports it is helping to talk to peers and participating in groups, and has been working on correcting negative thoughts about herself, by thinking about how she would respond to a friend if they were telling her these things. She reports improving mood and decreasing suicidal ideation, and thinks she will feel ready to leave the hospital tomorrow in order to attend her outpatient therapy appointment. Physical Exam Psychiatric Orientation: alert and cooperative Apperance: appropriately dressed, appropriately groomed and appeared stated age Eye Contact: good eye contact Motor Behavior: steady gait and station and no abnormal motor movements Speech: normal rate/rhythm/volume of speech Affect: euthymic affect and mood congruent with affect "Great." Thought Process: goal directed thought process Thought Content: + cognitive distortions (But actively working on correcting them) Suicidal Thoughts: denies suicidal thoughts Homicidal Thoughts: denies homicidal thoughts Hallucinations: no auditory hallucinations Estimated Intelligence: consistent with education level Insight: + fair insight Judgement: + fair judgement Vital Signs (Past 24 Hours) Last Vital Signs Temp 36.6 C 07/15/20 06:00 Pulse 86 07/15/20 06:44 Resp 16 07/15/20 06:00 BP 109/69 07/15/20 06:44 Pulse Ox 99 07/09/20 20:01 Results & Data ([facility]) Current Inpatient Medications Current Inpatient Medications: Current Inpatient Medications Acetaminophen (Acetaminophen 325 Mg Tab) 650 mg PO Q4H PRN PRN Reason: Headache or Minor Fever Stop: 08/08/20 19:17 Al Hydrox/Mg Hydrox/Simethicone (Aluminum/Magnesium Susp 30 Ml Udc) 30 ml PO Q4H PRN PRN Reason: GI Upset Stop: 08/08/20 19:17 Bismuth Subsalicylate (Bismuth Subsalicylate Liqd 236 Ml) 15 ml PO PRN PRN PRN Reason: Loose Stool Stop: 08/08/20 19:17 Hydroxyzine HCl (Hydroxyzine Hcl 25 Mg Tab) 50 mg PO HSZ PRN PRN Reason: Insomnia Stop: 08/08/20 19:17 Last Admin: 07/12/20 02:03 Dose: 50 mg Documented by: Hydroxyzine HCl (Hydroxyzine Hcl 25 Mg Tab) 25 mg PO Q4H PRN PRN Reason: Anxiety Stop: 08/08/20 19:17 Magnesium Hydroxide (Magnesium Hydroxide Susp 30 Ml Udc) 30 ml PO DAILY PRN PRN Reason: Constipation Stop: 08/08/20 19:17 Sertraline HCl (Sertraline Hcl 100 Mg Tablet) 100 mg PO QAM JHON Stop: 08/12/20 08:59 Last Admin: 07/14/20 09:00 Dose: 100 mg Documented by: Sodium Chloride (Sodium Chloride 0.65% Na Soln 45 Ml ([place])) 1 - 2 sprays NA PRN PRN PRN Reason: Nasal Dryness/Congestion Stop: 08/08/20 19:17 Mental Health & Subst Abuse Tx Psychiatrist Name of Psychiatrist: Dr. Stratton Psychiatrist's Date of Appointment with Psychiatrist: 07/19/20 Time of Appointment with Psychiatrist: 10:00am Psychiatric Appointment Comment: Telehealth Therapist Name of Therapist: EZIO Carey Therapist's Date of Therapist Appointment: 07/16/20 Time of Therapist Appointment: 1:00 p.m. Therapy Appointment Comment: Telehealth Glass Setter Name of Glass Setter: EZIO Terry Phone Number for Glass Setter: [phone] Date of Appointment with Glass Setter: 07/17/20 Time of Appointment with Glass Setter: 9:30 a.m. Case Management Appointment Comment: Phone appointment Post Discharge Appointments Primary Care Physician Name Of Family Doctor: Dr. Susan OWENS Primary Care Provider Appointment Comment: [facility] Needed, [facility] Contact Information Discharge Discharge Address: [address] [place] [address], [address], [place] [address] (1) Depression Active/Remission status: currently active Depression Type: major depressive disorder Major depression episode severity: severe Major depression recurrence: recurrent Psychotic features: with psychotic features Qualified Code(s): F33.3 - Major depressive disorder, recurrent, severe with psychotic symptoms
[2020-07-15] MEDS: SERTRALINE HCL 100 MG TABLET PO SCH (08:46)
[2020-07-16] MEDS: SERTRALINE HCL 100 MG TABLET PO SCH (08:59)
--- NOTE | 2020-07-16 09:56 | Discharge Summary ---
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 Depression F33.3 Depression Type: major depressive disorder Major depression recurrence: recurrent Active/Remission status: currently active Major depression episode severity: severe Psychotic features: with psychotic features
[2020-07-16] MEDS ORDERED: DESTROY THIS MEDICATION ONE (10:46)
== END 2020-07-16 12:35 | disposition home or self-care (01) | DRG 885 ==
LOC: ED 15:09 → 3S 19:19